=== PATIENT | female | born 1945 | race African-American/Black ===

== ENCOUNTER 2020-09-02 22:02 | Inpatient (IN) | payer OTHER ==
[~2020-09-02] VITALS: Ht 165.1 cm; Wt 102.1 kg
[2020-09-02 22:13] VITALS: BP 142/57
[2020-09-02 22:22] LABS: ABSOLUTE NEUTROPHILS 5.7 thou/uL (1.4-8.2); BASOPHILS 0.2 % (0.0-2.0); HEMATOCRIT 34.4 % (37.0-47.0); HEMOGLOBIN 11.5 gm/dL (12.0-15.0); LYMPHOCYTES 8.2 % (24.0-44.0); MCH 31.1 pg (26.0-34.0); MCHC 33.4 g/dL (28.0-37.0); MCV 93.2 fL (80.0-100.0); MONOCYTES 1.2 % (1.0-8.0); PLATELET COUNT 92 thou/uL (150-400); POLYS 90.4 % (36.0-66.0); RBC 3.69 mil/uL (4.20-5.00); RDW 14.7 % (10.5-14.5); WBC 6.3 thou/uL (4.0-11.0)
[2020-09-02 22:39] LABS: ALBUMIN 2.7 g/dL (3.4-5.0); CALCIUM 7.9 mg/dL (8.5-10.1); CREATININE 2.1 mg/dL (0.6-1.0); DIRECT BILIRUBIN 0.3 mg/dL (<0.1-0.2); TOTAL BILIRUBIN 1.3 mg/dL (0.2-1.0); TOTAL PROTEIN 6.7 g/dL (6.4-8.2)
[2020-09-02 22:41] LABS: POTASSIUM 2.9 mmol/L (3.5-5.1)
[2020-09-02] MEDS ORDERED: PROTONIX40 M2 PO (23:08)
[2020-09-02] MEDS ORDERED: HYDROCHLOROTH12.5 M2 PO (23:08)
[2020-09-02] MEDS ORDERED: MELOXICAM15 MG PO (23:08)
[2020-09-02] MEDS ORDERED: METFORMIN HCL1000 MG PO (23:08)
[2020-09-02] MEDS ORDERED: METOPROLOL SUCC25 M1 PO (23:08)
[2020-09-02] MEDS ORDERED: MYRBETRIQ50 MG PO (23:09)
[2020-09-02] MEDS ORDERED: GLIMEPIRIDE1 MG PO (23:09)
[2020-09-02] MEDS ORDERED: ZOCOR 20 MG TAB20 M1 PO (23:09)
[2020-09-02 23:16] LABS: URINE BILIRUBIN NEGATIVE (Negative); URINE BLOOD 3+ (Negative); URINE CLARITY SL CLOUDY; URINE COLOR YELLOW; URINE GLUCOSE-RANDOM* NEGATIVE (Negative); URINE KETONES NEGATIVE (Negative); URINE NITRITE-REFLEX NEGATIVE (Negative); URINE PROTEIN (DIPSTICK) 3+ (Negative)
[2020-09-02] MEDS ORDERED: RAMIPRIL10 MG PO (23:31)
[2020-09-02 23:32] LABS: URINE LEUKOCYTES-REFLEX 1+ (Negative)
[2020-09-02 23:40] LABS: FINE GRANULAR CASTS 0-3 Few /LPF (None Seen); HYALINE CASTS 0-3 Few /LPF (None Seen); MUCUS 0-3 Light strn/LPF (None Seen); SQUAMOUS 4-10 Moderate /LPF (0-3); WAXY CAST 0-3 Few /LPF (None Seen)
[2020-09-02 23:41] LABS: AMORPHOUS URATES Moderate /LPF (None Seen); CRYSTALS None Seen /LPF (None Seen); URINE RBC >20 Many /HPF (0-2)
[2020-09-03 00:37] VITALS: BP 106/45
--- NOTE | 2020-09-03 01:50 | NUR ---
Attempted to call report to 3 [place] nurse. Nurse will call back.
[2020-09-03 01:51] VITALS: BP 97/49
[2020-09-03 02:36] VITALS: BP 110/53
--- NOTE | 2020-09-03 03:11 | NUR ---
PT ADMITTED FROM HOME TO ED. PTS REPORTED THAT PT HAD BEEN WEAK AND CONFUSED FOR 3 DAYS. ADMITTING DIAGNOSIS AMS, ALVARADO, SPESIS, HYPOKALEMIA, LACTIC ACIDOSIS, UTI. PT RECEIVED 2L FLUID IN ED AND ANTIBIOTICS AND POTASSIUM. PT PRESENETED WITH FEVER AND TYLENOL PROVIDED. PT ALERT TO SELF AND SITUATION. PT REQUIRED 2 PERSON ASSIST TO GET OUT OF CART AND WALK TO BED. PT ABLE TO ANSWER ADMISSION QUESTIONS. PT STATED THAT SHE GIVES HERSELF HER MEDICATIONS AND THAT SHE CONTINUES TO DRIVE, BUT THAT HER USUALLY DOES THE DRIVING. ED NURSE STATED THAT PT AND HER WERE A POOR HISTORIAN REGARDING HOME MEDS. PT CHEERFUL SMILING LAUGHING, QUICKLY FELL ASLEEP AFTER ADMISSION PROCESS. BED ALARM ON.
[2020-09-03 07:27] VITALS: BP 156/76
[2020-09-03 09:54] LABS: HEMOGLOBIN 12.5 gm/dL (12.0-15.0); MCH 30.6 pg (26.0-34.0); MCHC 32.9 g/dL (28.0-37.0); MCV 93.2 fL (80.0-100.0); RBC 4.08 mil/uL (4.20-5.00); RDW 14.4 % (10.5-14.5); WBC 15.6 thou/uL (4.0-11.0)
[2020-09-03 10:15] LABS: CALCIUM 8.5 mg/dL (8.5-10.1); CREATININE 1.6 mg/dL (0.6-1.0); MAGNESIUM 1.3 mg/dL (1.8-2.4); POTASSIUM 3.3 mmol/L (3.5-5.1)
--- NOTE | 2020-09-03 13:38 | NUR ---
PT ALERT AND ORIENTED TIMES FOUR WITH PERIODS OF CONFUSION. VSS. IVF INFUSING PER ORDER. PT DENIES PAIN/SOA AT THIS TIME. PT TOLERATES MEDS AND MEALS. PT UP TO BSC WITH ASSIST OF ONE. PT AT BEDSIDE THIS MORNING. WILL CONTINUE TO MONITOR.
[2020-09-03 16:23] VITALS: BP 119/54
[2020-09-03 19:21] VITALS: BP 131/43
[2020-09-04 04:12] VITALS: BP 125/69
--- NOTE | 2020-09-04 04:33 | NUR ---
Pt. able to answer orientation questions except she think she's at [facility] , eaisly reoriented. She has been calm and cooperative. Max temp 100.7 orally. RETREAD OPERATOR notified and order received. Tylenol given and she has been afebrile since. Up with assist to commode x1 to void. Denies any pain. Making some progress towards care plan goals.
[2020-09-04 05:47] LABS: HEMATOCRIT 35.2 % (37.0-47.0); HEMOGLOBIN 11.2 gm/dL (12.0-15.0); MCH 29.7 pg (26.0-34.0); MCHC 31.9 g/dL (28.0-37.0); MCV 93.3 fL (80.0-100.0); RBC 3.77 mil/uL (4.20-5.00); RDW 14.8 % (10.5-14.5); WBC 12.2 thou/uL (4.0-11.0)
[2020-09-04 06:21] LABS: CALCIUM 8.1 mg/dL (8.5-10.1); CREATININE 1.4 mg/dL (0.6-1.0); POTASSIUM 3.1 mmol/L (3.5-5.1)
[2020-09-04 06:24] LABS: ALBUMIN 2.3 g/dL (3.4-5.0); PHOSPHORUS 2.5 mg/dL (2.6-4.7)
[2020-09-04 07:47] VITALS: BP 141/75
--- NOTE | 2020-09-04 09:31 | EKG ---
[address] [place] [address] ELECTROCARDIOGRAM REPORT Name: KAROLINA BHATIA Room #: 360-P ADM IN M.R.#: [id number] Admission: 09/03/20 Attend Phys: Rafa Oliveira Discharge: Date of : 41 Report #: [id number] [facility] ED Test Date: 2020-09-02 Test Time: 22:48:42 Pat Name: KAROLINA BHATIA Department: Room: 360 Gender: F Miner Placer: nasrin : 1945 Requested By: Kala Stanton Order Number: [id number] MD: Yovani Breaux Measurements Intervals [place] Rate: 104 P: 36 DE: 137 QRS: -47 QRSD: 100 T: 35 QT: 330 QTc: 434 Interpretive Statements Sinus tachycardia Leftward axis No previous ECG available for comparison Electronically Signed On 09-04-2020 9:31:25 CDT by Yovani Breaux [email or web address] <ELECTRONICALLY SIGNED> By: Yovani Breaux MD, [facility] 09/04/20 0931 [id number] Yovani Breaux MD, FACC /EPI
--- NOTE | 2020-09-04 14:51 | NUR ---
INITIAL ASSESSMENT: Received consult for discharge planning. GISSELLE reviewed chart and spoke with nursing and attending physician. Pt was admitted from home due to UTI/sepsis. Pt is on IV abx. GISSELLE met with pt at bedside. Introduced role of SW. Pt is alert/orientated x 4. Pt reports she and her live in a second level apt with elevator access. No stairs to navigate. Pt has a cane and walker to use as needed. Pt has used HH in the past following hip surgery. Unsure of HH provider. No hx of post-acute placement. Pt is agreeable with HH referral if recommended. Options for HH agencies provided. No preference voiced. Pt's PCP is Dr. Rosalino Correa. PT/OT have both evaluated pt today. Plan is for pt to discharge home when medically stable. GISSELLE faxed HH referral to Josh and notified Lorena in intake of new referral. GISSELLE is following to assist as needed with discharge planning.
[2020-09-04 16:04] VITALS: BP 167/78
--- NOTE | 2020-09-04 16:08 | NUR ---
RN ASSIMED PT'S CARE AT 0700AM, PT IS A&OX3, PT'S VS ARE TABLE, PT IS CONTINUING IV ABX, AND IV FLUID, PT 'S POTASIUM AND MAGNESSIUM HAS REPLACEMENT,PT GETS UP TO CHAIR JASMYNE YI , PT'S VS ARE SABLE AT THIS TIME, PT DIA PAIN AT THI TIME.
[2020-09-04 19:37] VITALS: BP 122/64
[2020-09-05 03:58] VITALS: BP 178/71
--- NOTE | 2020-09-05 04:05 | NUR ---
Up in the chair at shift change with visiting. Assisted back to bed using walker. C/O abd pain and requested for laxative , miralax given at HS. Tylenol also given for discomfort with some relief. External cath in place and voided [address] , bed alarm for safety.She stated she slept well during the night. Making some progress towards care plan goals.
[2020-09-05 05:32] LABS: HEMATOCRIT 35.4 % (37.0-47.0); HEMOGLOBIN 11.6 gm/dL (12.0-15.0); MCH 30.5 pg (26.0-34.0); MCHC 32.9 g/dL (28.0-37.0); MCV 92.7 fL (80.0-100.0); RBC 3.82 mil/uL (4.20-5.00); RDW 14.3 % (10.5-14.5); WBC 10.9 thou/uL (4.0-11.0)
[2020-09-05 05:50] LABS: CREATININE 1.1 mg/dL (0.6-1.0); MAGNESIUM 1.7 mg/dL (1.8-2.4); POTASSIUM 3.5 mmol/L (3.5-5.1)
[2020-09-05 07:13] VITALS: BP 167/71
--- NOTE | 2020-09-05 10:30 | NUR ---
care taken over this am, pt alert and oriented x4, denies any pain, nausea and vomitting. got pt up in the chair, with a gaitbelt and walker.pt seems weak and will need physical therapy while at home. anticipating for d/c today with homehealth
[2020-09-05] MEDS ORDERED: TYLENOL EXTRA500 MG PO (12:17)
[2020-09-05] MEDS ORDERED: CEFUROXIME250 MG PO (12:38)
[2020-09-05 12:56] VITALS: BP 167/71
--- NOTE | 2020-09-05 13:04 | NUR ---
DISCHARGE NOTE: SW reviewed chart and spoke with nursing and attending physician. Pt is medically stable for discharge home today. Orders written for HH services. GISSELLE faxed finalized discharge orders/summary to [facility]. GISSELLE notified Lorena in intake of orders. SW met with pt at bedside to provide update and discuss discharge plan. Pt is aware and in agreement with discharge plan. Pt's family to provide transportation home. Contact info for HH placed in pt's discharge summary. No additional SW needs identified at this time, but is available to assist should needs arise.
[2020-09-05 14:22] VITALS: BP 167/71
--- NOTE | 2020-09-05 15:39 | NUR ---
DISCHARGE ORDERS I, IV DISCONTINUE. ALL BELONGINGS PACKED. DICHARGE INSTRUCTION AND NEW MED INFORMATION GIVEN TO PT. DENIES ANY QUESTIONS. PT TAKEN DOWN VIA WHEELCHAIR
== END 2020-09-05 15:43 | disposition home health service (06) | DRG 871 ==
LOC: ER 22:02 → 3W 09-03 00:30 → EROBS 09-03 00:30 → 3W 09-03 02:17
PROVIDERS: Emergency Medicine; Internal Medicine; ADMIT Hospitalist; ATTEND Hospitalist
DX: A41.9 Sepsis, unspecified organism (principal); G92 Toxic encephalopathy; N17.0 Acute kidney failure with tubular necrosis; N39.0 Urinary tract infection, site not specified; E11.9 Type 2 diabetes mellitus without complications; I10 Essential (primary) hypertension; E86.0 Dehydration; R63.0 Anorexia; R53.81 Other malaise; K59.00 Constipation, unspecified; K21.9 Gastro-esophageal reflux disease without esophagitis; R32 Unspecified urinary incontinence; B96.20 Unspecified Escherichia coli [E. coli] as the cause of diseases classified elsewhere; Z85.038 Personal history of other malignant neoplasm of large intestine; Z68.37 Body mass index [BMI] 37.0-37.9, adult; Z82.49 Family history of ischemic heart disease and other diseases of the circulatory system; Z79.899 Other long term (current) drug therapy
CPT/HCPCS: 10779; 10879